=== PATIENT | male | born 1955 | race Asian ===

== ENCOUNTER 2018-03-04 19:55 | Emergency (ER) | payer OTHER ==
[~2018-03-04] VITALS: Ht 172.7 cm; Wt 93.3 kg
[2018-03-04] MEDS ORDERED: LIDOCAINE-MPF 1%, 5ML ONE (20:12)
[2018-03-04] MEDS ORDERED: LIDOCAINE 2%, 20ML SQ ONE (20:30)
[2018-03-04] MEDS ORDERED: DIPH,PERTUSS(ACELL),TET VAC/PF 0.5 ML IM-VACC ONE ×2 (21:00→21:43)
[2018-03-04] MEDS ORDERED: BACITRACIN ZINC OINT 500U/GM, 0.9 GM ONE (21:33)
--- NOTE | 2018-03-04 21:51 | NUR ---
EDT AT BEDSIDE FOR DRESSING AND SPLINT. Patient given discharge instructions and he has confirmed that he understands the instructions. Patient ambulatory with steady gait.
== END 2018-03-04 21:53 | disposition home or self-care (01) ==
LOC: ED 21:38
DX: S61.213A Laceration without foreign body of left middle finger without damage to nail, initial encounter (principal); I10 Essential (primary) hypertension; E11.9 Type 2 diabetes mellitus without complications; W26.0XXA Contact with knife, initial encounter; Y93.89 Activity, other specified; Y92.89 Other specified places as the place of occurrence of the external cause; Y99.8 Other external cause status
CPT/HCPCS: 12042; 90471; 90715